=== PATIENT | female | born 1995 | race Two or more races ===

== ENCOUNTER 2025-07-25 19:22 | Emergency (ER) | payer MEDICAID ==
[~2025-07-25] VITALS: Ht 180.3 cm; Wt 115.0 kg
[2025-07-25 20:05] VITALS: BP 127/72; PULSE 91; RESP 18; O2SAT 99
--- NOTE | 2025-07-25 20:43 | RADIOLOGY REPORT ---
CLINICAL INDICATION: left elbow pain TECHNIQUE: DI ELBOW, COMPLETE (3VW MIN) Comparison: None FINDINGS/IMPRESSION: : There is no evidence of acute fracture or dislocation. Soft tissues are unremarkable.
--- NOTE | 2025-07-25 21:18 | Physician Documentation ---
History of Present Illness ~ Chief Complaint: Arm Pain Stated Complaint: ARM PAIN Time Seen by MD: 20:10 HPI Patient is seen today with complaints of pain of her left elbow without any known injury. Patient states pain started a couple of days ago and she now has difficulty fully extending her left elbow due to pain of the distal triceps. Patient denies any numbness or tingling and has no other concern or complaint at this time. Medication Reconciliation Allergies: Coded Allergies: No Known Allergies (Unverified , 07/25/25) Review of Systems Constitutional: Denies: chills, fever, weakness Eyes: Denies: pain, blurred vision ENT: Denies: ear pain, nose pain, throat pain, mouth pain Respiratory: Denies: cough, shortness of breath Cardiovascular: Denies: chest pain, palpitations Gastrointestinal: Denies: abdominal pain, nausea, vomiting Genitourinary: Denies: burning, dysuria Female Genitalia: Denies: vaginal discharge, pelvic pain Neurological: Denies: headache, dizziness Musculoskeletal: Denies: pain, swelling Integumentary: Denies: rash, lesions Allergic/Immunologic: Denies: hives, itching Hematologic/Lymphatic: Denies: no symptoms reported Psychiatric: Denies: depression, anxiety Physical Exam Vital Signs: Temperature: 99.5, Source: Oral, Heart Rate: 91, Respiratory Rate: 18, BP: 127/72, Pulse Oximetry: 99, Weight: 115.000 Physical Exam General: Awake and Alert, no acute distress. HEENT: Conjunctiva pink, Sclera clear, Mucus Membranes moist. Neck: Supple without masses and tenderness. Resp: Unlabored. Lungs clear to auscultation bilaterally. Heart: Regular Rate and rhythm, normal S1 and S2 without murmur, rub or gallop. Musculoskeletal: Patient on exam does have tenderness to palpation of the distal triceps just proximal to the olecranon process. Patient has negative Tinel's at the medial elbow of the left side. Patient has no tenderness to palpation of the medial epicondyle of the left elbow. Patient does have decreased range of motion lacking approximately 15 of full extension of the left elbow. I do not appreciate any swelling or ecchymosis. Patient is neurovascularly intact distally. Motor function and strength intact distally. Extremities: No cyanosis,clubbing or edema. Skin: Warm and Dry. Progress Results/Orders Results/Orders Orders - SHORTY TEJADA Elbow, Complete (3vw Min) (07/25/25 20:22) Completed Orders - SHORTY TEJADA Elbow, Complete (3vw Min) (07/25/25 20:22) Vital Signs 07/25/25 20:05 Temp 99.5 Pulse 91 Resp 18 B/P (MAP) 127/72 Pulse Ox 99 EKG/XRAY/CT/US/VASC/MRI Bone/Soft Tissue X-Ray (Ext.) : Additional Comment X-ray of left elbow interpreted by myself today shows no sign of acute fracture, bones in anatomic alignment, no osteolytic or blastic lesions. DIAGNOSTIC RADIOLOGY Patient: PENELOPE JENSEN Medical Record: [id number] [facility] : 1995, Age: 29 Sex: Female Location: ER Patient Status: [facility] ER Service Date/Time: 07/25/252021 Ordering Physician: SHORTY TEJADA Exam: ELBOW, COMPLETE (3VW MIN) CLINICAL INDICATION: left elbow pain TECHNIQUE: DI ELBOW, COMPLETE (3VW MIN) Comparison: None FINDINGS/IMPRESSION: : There is no evidence of acute fracture or dislocation. Soft tissues are unremarkable. Electronically Signed by:WILBERTO BAEZ MD Date & Time: 07/25/252039 Dictated by: WILBERTO BAEZ MD Dictation date and time: 07/25/252039 Primary Care Provider: NO PRIMARY CARE PROVIDER cc: SHORTY TEJADA ~ Medical Decision Making Findings Patient is seen today with complaints of pain of her left elbow without any known injury. Patient states pain started a couple of days ago and she now has difficulty fully extending her left elbow due to pain of the distal triceps. Nate ulloa denies any numbness or tingling and has no other concern or complaint at this time. Patient and did have x-ray of left elbow that was unremarkable. Patient will continue monitoring closely. Patient will follow up with primary care in 2-5 days if no better as needed sooner. Return to ED with any worsening, concerning or changing symptoms. Departure Disposition: HOME / SELF CARE / HOMELESS Impression: Primary Impression: Tendinitis Condition: Stable Discharge Instructions: Tendinitis Additional Instructions: Patient and did have x-ray of left elbow that was unremarkable. Patient will continue monitoring closely. Patient will follow up with primary care in 2-5 days if no better as needed sooner. Return to ED with any worsening, concerning or changing symptoms. Referrals: NO PRIMARY CARE PROVIDER (PCP) Signature Scribe Signature: No scribe Attestation: No scribe no scribe SHORTY TEJADA PAC Jul 25, 2025 21:18
[2025-07-25 21:45] VITALS: TEMP 99.5
== END 2025-07-25 21:46 | disposition home or self-care (01) ==
LOC: ER 19:23
DX: M77.9 Enthesopathy, unspecified (principal)
CPT/HCPCS: 73080; 99283